=== PATIENT | male | born 1965 | race American Indian/Alaskan Native ===

== ENCOUNTER 2017-07-11 08:57 | Emergency (ER) | payer BC ==
[2017-07-11 09:09] VITALS: BP 151/108
[2017-07-11] MEDS ORDERED: ULTRAM ONE (10:42)
[2017-07-11] MEDS ORDERED: ULTRAM PO ONE (10:42)
--- NOTE | 2017-07-11 10:46 | Emergency Department Report ---
ED Back Pain/Injury HPI - General Chief Complaint: Back Pain/Injury Stated Complaint: BACK PAIN Time Seen by Provider: 07/11/17 10:33 Source: patient Limitations: No Limitations - History of Present Illness Initial Comments: 52-year-old male with a past medical history hypertension presents to the hospital complaining of left lower back pain the last couple of weeks. No injury reported. Patient complains of pain in the lower back, buttock, and radiating down left leg that is moderate in intensity. Patient ambulates with a cane for assistance. Patient was seen at urgent care on the and had x- ray of the lumbar spine showing mild degenerative disc disease (report presented ). Take Motrin 800 mg for pain and prednisone without relief. Patient denies weakness, urinary incontinence, or fever. He was restarted on blood pressure medication Norvasc 5 mg once a day since patient has been also blood pressure medications for several years prior. - Related Data Previous Rx's Medication Instructions Recorded Last Taken Type traMADol [Ultram 50 MG tab] 50 mg PO Q6HR PRN #20 tablet 07/11/17 Unknown Rx Allergies Allergy/AdvReac Type Severity Reaction Status Date / Time No Known Allergies Allergy Unverified 07/11/17 10:42 ED Review of Systems ROS: Stated complaint: BACK PAIN Other details as noted in HPI Comment: All other systems reviewed and negative ED Past Medical Hx - Past Medical History Previous Medical History?: Yes Hx Hypertension: Yes - Surgical History Past Surgical History?: No - Social History Smoking Status: Current Some Day Smoker Substance Use Type: Alcohol - Medications Home Medications: Home Medications Medication Instructions Recorded Confirmed Last Taken Type traMADol [Ultram 50 MG tab] 50 mg PO Q6HR PRN #20 tablet 07/11/17 Unknown Rx ED Physical Exam - General Limitations: No Limitations - Other Other exam information: General: No limitations, patient is alert in no acute distress Head exam: Atraumatic, normocephalic Eyes exam: Normal appearance, pupils equal reactive to light, extraocular movements intact ENT: Moist mucous membrane Neck exam: Normal inspection, full range of motion, no meningismus nontender Respiratory exam: Clear to auscultation bilateral, no wheezes, rales, crackles Cardiovascular: Normal rate and rhythm, normal heart sounds Abdomen: Soft, nondistended, and nontender, with normal bowel sounds, no rebound, or guarding Extremity: Full range of motion normal inspection no deformity Back: Normal Inspection, full range of motion, no midline tenderness. Tenderness to the left sided lumbar muscles and left gluteal to palpation Neurologic: Alert, oriented x3, cranial nerves intact, hyperesthesias to left lateral leg. No deficit, 5/5 strength Psychiatric: normal affect, normal mood Skin: Warm, dry, intact ED Course Vital Signs 07/11/17 07/11/17 09:03 09:11 Temperature 98.3 F 98.3 F Pulse Rate 84 93 H Respiratory 18 Rate Blood Pressure 151/108 Blood Pressure 151/108 [Right] O2 Sat by Pulse 99 98 Oximetry ED Medical Decision Making - Medical Decision Making Patient having symptoms of sciatica. Had recent outpatient labs an outpatient x -ray (both reports reviewed). Will be provided tramadol in addition to his prescribed Motrin and prednisone for additional pain relief. Outpatient follow- up PMD will be encouraged - Differential Diagnosis sciatica, herniated disc, radiculopathy Critical Care Time: No Critical care attestation.: If time is entered above; I have spent that time in minutes in the direct care of this critically ill patient, excluding procedure time. ED Disposition Clinical Impression: Lumbar radiculopathy, acute Sciatica Qualifiers: Laterality: left Qualified Code(s): M54.32 - Sciatica, left side Disposition: TO HOME OR SELFCARE Is pt being admited?: No Does the pt Need Aspirin: No Condition: Stable Instructions: Lumbar Radiculopathy (ED), Sciatica (ED) Additional Instructions: Take the medication is prescribed and return if symptoms worsen as indicated by a discharge instructions Prescriptions: traMADol [Ultram 50 MG tab] 50 mg PO Q6HR PRN #20 tablet PRN Reason: Pain Referrals: PRIMARY CARE, [Primary Care Provider] - 3-5 Days Time of Disposition: 10:47
== END 2017-07-11 11:12 | disposition home or self-care (01) ==
LOC: ED 08:57
DX: M54.32 Sciatica, left side (principal); M54.16 Radiculopathy, lumbar region; I10 Essential (primary) hypertension; Z72.0 Tobacco use
CPT/HCPCS: 99282

== ENCOUNTER 2021-05-05 13:32 | Emergency (ER) | payer BC, OTHER ==
--- NOTE | 2021-05-05 14:06 | Emergency Department Report ---
ED General Adult HPI - General Chief complaint: Dyspnea/Respdistress Stated complaint: COUGHING PUI?: No Time Seen by Provider: 05/05/21 13:48 Source: patient, RN notes reviewed Mode of arrival: Ambulatory Limitations: No Limitations - History of Present Illness Initial comments: The patient is a 56-year-old gentleman, who is COVID-19 vaccinated. He has a past medical history of body mass index 32.7. He does not currently have a primary care doctor, but believes that he has a past medical history of hypertension. He has previously been prescribed antihypertensive medication, but he does not know what medications he takes. He presents to the ER today with a complaint of painless cough. This has been present for weeks. He does not smoke. He denies loss of taste and smell. He denies physical pain. He occasionally has clear/yellow sputum production. He came today at the request of his significant other. -: week(s) Consistency: intermittent Improves with: none Worsens with: none Associated Symptoms: denies other symptoms - Related Data Previous Rx's Medication Instructions Recorded Last Taken Type Albuterol Sulfate [Proair 90 mcg IH Q4HR PRN #2 aer.[email or web address] 05/05/21 Unknown Rx Respiclick] Amlodipine Besylate [Norvasc] 5 mg PO QDAY #30 tab 05/05/21 Unknown Rx Cetirizine HCl [Zyrtec 10mg tab] 10 mg PO QDAY #30 tab 05/05/21 Unknown Rx Allergies Allergy/AdvReac Type Severity Reaction Status Date / Time No Known Allergies Allergy Verified 05/05/21 14:39 ED Review of Systems ROS: Stated complaint: COUGHING Other details as noted in HPI Comment: All other systems reviewed and negative Respiratory: cough ED Past Medical Hx - Past Medical History Hx Hypertension: Yes - Social History Smoking Status: Current Some Day Smoker Substance Use Type: Alcohol - Medications Home Medications: Home Medications Medication Instructions Recorded Confirmed Last Taken Type Albuterol Sulfate [Proair 90 mcg IH Q4HR PRN #2 aer.[email or web address] 05/05/21 Unknown Rx Respiclick] Amlodipine Besylate [Norvasc] 5 mg PO QDAY #30 tab 05/05/21 Unknown Rx Cetirizine HCl [Zyrtec 10mg tab] 10 mg PO QDAY #30 tab 05/05/21 Unknown Rx ED Physical Exam - General Limitations: No Limitations General appearance: alert, in no apparent distress, obese - Head Head exam: Present: atraumatic, normocephalic - Eye Eye exam: Present: normal appearance, EOMI. Absent: nystagmus - ENT ENT exam: Present: normal exam, normal orophraynx, mucous membranes moist, normal external ear exam - Neck Neck exam: Present: normal inspection, full ROM. Absent: tenderness, meningismus - Respiratory Respiratory exam: Present: normal lung sounds bilaterally. Absent: respiratory distress, wheezes, rales, rhonchi, stridor, decreased breath sounds - Cardiovascular Cardiovascular Exam: Present: regular rate, normal rhythm, normal heart sounds. Absent: bradycardia, tachycardia, irregular rhythm, systolic murmur, diastolic murmur, rubs, gallop - GI/Abdominal GI/Abdominal exam: Present: soft. Absent: distended, tenderness, guarding, rebound, rigid, pulsatile mass - Rectal Rectal exam: Present: deferred - Extremities Exam Extremities exam: Present: normal inspection, full ROM, other (2+ pulses noted in the bilateral upper and lower extremities. There is no palpable cord. negative Homans sign. Muscular compartments are soft. The pelvis is stable.). Absent: pedal edema, calf tenderness - Back Exam Back exam: Present: normal inspection, full ROM. Absent: tenderness, CVA tenderness (R), CVA tenderness (L), paraspinal tenderness, vertebral tenderness - Neurological Exam Neurological exam: Present: alert, oriented X3, normal gait, other (No facial droop. Tongue midline. Extraocular movements intact bilaterally. Facial sensation intact to light touch in V1, V2, V3 distribution bilaterally. 5 and a 5 strength in 4 extremities. Sensation intact to light touch in 4 extremities.). Absent: motor sensory deficit - Psychiatric Psychiatric exam: Present: normal affect, normal mood - Skin Skin exam: Present: warm, dry, intact, normal color. Absent: rash ED Course Vital Signs 05/05/21 05/05/21 05/05/21 13:43 14:00 14:15 Temperature 98.1 F Pulse Rate 91 H 84 Respiratory 18 22 Rate Blood Pressure 151/88 165/104 O2 Sat by Pulse 96 98 99 Oximetry 05/05/21 14:21 Temperature Pulse Rate Respiratory 16 Rate Blood Pressure O2 Sat by Pulse 100 Oximetry - Pulse Oximetry Interpretation Digit-Finger Initial Pulse Oximetry Readin O2 Sat by Pulse Oximetry: 98 Actions Taken: none ED Medical Decision Making - Lab Data Vital Signs 05/05/21 05/05/21 05/05/21 13:43 14:00 14:15 Temperature 98.1 F Pulse Rate 91 H 84 Respiratory 18 22 Rate Blood Pressure 151/88 165/104 O2 Sat by Pulse 96 98 99 Oximetry 05/05/21 14:21 Temperature Pulse Rate Respiratory 16 Rate Blood Pressure O2 Sat by Pulse 100 Oximetry - Radiology Data Radiology results: pending, report reviewed, image reviewed CHEST 2 VIEWS INDICATION / CLINICAL INFORMATION: coughing. COMPARISON: None available. FINDINGS: SUPPORT DEVICES: None. HEART / MEDIASTINUM: No significant abnormality. LUNGS / PLEURA: No significant pulmonary or pleural abnormality. No pneumothorax. ADDITIONAL FINDINGS: No significant additional findings. IMPRESSION: 1. No acute findings. Signer Name: Chandler Robb MD Signed: 05/05/2021 1:20 PM Workstation Name: [id number] - Medical Decision Making Differential diagnosis, including but not limited to: Bronchitis, hypertension, encounter for medical screening exam, obstructive sleep apnea Assessment and plan: 56-year-old gentleman, who is afebrile, with reassuring vital signs, who is not currently tachycardic, tachypneic or hypoxic, who denies DVT/PE risk factors, who is low risk by Wells criteria for pulmonary embolism, presenting with cough for weeks. Lung sounds clear. Saturating at 99 100% on room air. Chest x-ray clear. Elevated blood pressure reviewed and appreciated. Please reference the [employer] clinical policy on asymptomatic hypertension. Patient does not appear to have an emergent medical condition present at this time. Start albuterol as needed, Zyrtec as needed, Norvasc for elevated blood pressure, outpatient follow-up with primary care for body mass index 32 elevated blood pressure, outpatient follow-up for possible obstructive sleep apnea. Critical care attestation.: If time is entered above; I have spent that time in minutes in the direct care of this critically ill patient, excluding procedure time. ED Disposition Clinical Impression: Elevated blood pressure reading, Cough, Body mass index 32.0-32.9, adult Disposition: 01 HOME / SELF CARE / HOMELESS Is pt being admited?: No Does the pt Need Aspirin: No Condition: Good Instructions: Obesity, Adult, [id number], Hypertension, Adult Additional Instructions: Symptoms likely coming from bronchitis, which may in turn be triggered by allergies, or possible sleep apnea. We recommend aggressive weight loss, diet, and exercise as tolerated. Take the prescribed albuterol inhaler as needed for cough and shortness of breath, Zyrtec to treat possible allergies, and Norvasc for elevated blood pressure. Recommend follow-up with a primary care doctor within the next 4 to 6 weeks for outpatient follow-up, checkup, and evaluation for possible obstructive sleep apnea. Please return to the emergency room right away with new pain, worsened pain, migration of pain, projectile vomiting, change in mental status, confusion, inability tolerate liquid feeds, new, worsened or different symptoms not present on the initial emergency room evaluation Referrals: [facility] [Provider Group] - 3-5 Days [facility] [Provider Group] - 3-5 Days
--- NOTE | 2021-05-05 14:24 | XRay Report ---
CHEST 2 VIEWS INDICATION / CLINICAL INFORMATION: coughing. COMPARISON: None available. FINDINGS: SUPPORT DEVICES: None. HEART / MEDIASTINUM: No significant abnormality. LUNGS / PLEURA: No significant pulmonary or pleural abnormality. No pneumothorax. ADDITIONAL FINDINGS: No significant additional findings. IMPRESSION: 1. No acute findings. Signer Name: Chandler Robb MD Signed: 05/05/2021 2:20 PM Workstation Name: [id number]
[2021-05-05 14:39] VITALS: BP 165/104
== END 2021-05-05 16:43 | disposition home or self-care (01) ==
LOC: ED 13:32
DX: R05.9 Cough, unspecified (principal); I10 Essential (primary) hypertension; Z68.32 Body mass index [BMI] 32.0-32.9, adult; F17.200 Nicotine dependence, unspecified, uncomplicated
CPT/HCPCS: 71046; 99283